=== PATIENT | male | born 1945 | race Caucasian/White ===

== ENCOUNTER 2018-01-10 00:34 | Outpatient (CLI) | payer MEDICARE, BC, SELFPAY ==
--- NOTE | 2018-01-10 11:13 | DI.RAD_ITS ---
SYMPTOMS/DIAGNOSIS: KIDNEY STONES SKY, N20.0, S/P BLADDER STONE REMOVAL, FOLLOW UP KUB: A large quantity of fecal material and scattered gas are noted in the colon. Allowing for overlying gas and fecal material a small calcification is projected over the lower pole of the left kidney. There is no evidence of gross organomegaly or a localized intra-abdominal or pelvic mass. SUMMARY: Findings consistent with left nephrolithiasis. The kidneys are largely obscured by overlying bowel gas and fecal material and if there is any further clinical question regarding the status of this patient, then further assessment with ultrasound or CT could be considered.
== END 2018-01-10 00:54 ==
PROVIDERS: PCP Family Medicine; Visit Provider Urology
DX: N20.0 Calculus of kidney (principal)
CPT/HCPCS: 74018

== ENCOUNTER → 2018-01-10 11:16 | Outpatient (BNVA) | payer MEDICARE, BC, SELFPAY | PROVIDERS: PCP Family Medicine; Visit Provider Urology | DX: N20.0 Calculus of kidney (principal); Z87.442 Personal history of urinary calculi | CPT/HCPCS: 99213; 74018 ==

== ENCOUNTER → 2018-02-06 09:20 | Outpatient (BNVA) | payer MEDICARE, BC, SELFPAY | PROVIDERS: Visit Provider Psychiatry & Neurology Neurology | DX: F03.91 Unspecified dementia, unspecified severity, with behavioral disturbance (principal); I10 Essential (primary) hypertension | CPT/HCPCS: 99214 ==